=== PATIENT | male | born 1980 ===

== ENCOUNTER → 2018-06-25 21:18 | Outpatient (REF) | payer OTHER, SELFPAY ==
[2018-06-25 22:05] LABS: Add Manual Diff / Slide Review NO; Basophils Percent Auto 1.1 % (0-2); Eosinophils Percent Auto 0.7 % (2-4); Hematocrit 45.7 % (41-53); Hemoglobin 14.9 g/dL (13.5-17.5); Lymphocytes Percent Auto 22.5 % (25-40); Mean Corpuscular HGB Conc 32.6 % (30-36); Mean Corpuscular Hemoglobin 30.2 PG (26-34); Mean Corpuscular Volume 92.6 fL (80-100); Monocytes Percent Auto 7.7 % (3-14); Neutrophils Absolute Auto 3900 /uL (1500-7000); Platelet Count 244 X10^3/uL (150-400); Red Blood Cell Count 4.94 X10^6/uL (4.5-5.9); Red Cell Distribution Width 13.6 % (11.6-14.8); White Blood Cell Count 5.8 X10^3/uL (4.5-11.0)
[2018-06-25 22:46] LABS: Thyroid Stimulating Hormone 0.16 uIU/mL (0.47-4.68)
[2018-06-25 23:22] LABS: Vitamin D 25 Hydroxy (D3) 32.3 ng/mL (30.0-100.0)
[2018-06-25 23:36] LABS: Free T3, Triiodothyronine Free 2.93 pg/mL (2.77-5.27); Free T4, Direct Thyroxine 0.89 ng/dL (0.78-2.19)
[2018-06-27 13:38] LABS: EBV Virus IgM Ab < 36.00 U/mL (< 36.00); EVB Early IgG < 9.00 U/mL (< 9.00)
[2018-06-27 14:03] LABS: CMV IgG Antibody < 0.60 U/mL (< 0.60); CMV IgM Antibody < 30.00 AU/mL (< 30.00)
[2018-06-29 19:50] LABS: Homocysteine 10.5 umol/L (< 11.4)
[2018-07-01 08:48] LABS: Magnesium, RBC 4.6 mg/dL (4.0-6.4)
[2018-07-01 09:05] LABS: Triiodothyronine T3 Reverse 17 ng/dL (8-25)
== END ==
LOC: LAB 21:18
PROVIDERS: Visit Provider Acupuncturist
DX: F32.9 Major depressive disorder, single episode, unspecified (principal); F41.9 Anxiety disorder, unspecified; R53.83 Other fatigue
CPT/HCPCS: 36415; 82306; 83090; 83735; 84207; 84439; 84443; 84481; 84482; 85025; 86644; 86645; 86663; 86664; 86665

== ENCOUNTER → 2018-08-05 21:40 | Outpatient (REF) | payer OTHER, SELFPAY ==
[2018-08-05 22:22] LABS: Free T3, Triiodothyronine Free 3.63 pg/mL (2.77-5.27); Free T4, Direct Thyroxine 0.81 ng/dL (0.78-2.19)
[2018-08-05 22:35] LABS: Thyroid Stimulating Hormone 0.46 uIU/mL (0.47-4.68)
[2018-08-08 14:55] LABS: Interpretation PAST INFECTION
[2018-08-08 15:08] LABS: Thyroid Stimulating Immunoglob < 89 % baseline (< 140)
[2018-08-09 16:12] LABS: Anti Thyroglobulin Antibody < 1 IU/mL (< 2); Thyroid Peroxidase Antibodies < 1 IU/mL (< 9)
[2018-08-20 10:17] LABS: Triiodothyronine T3 Reverse 12.6
== END ==
LOC: LAB 21:40
PROVIDERS: Visit Provider Acupuncturist
DX: E05.90 Thyrotoxicosis, unspecified without thyrotoxic crisis or storm (principal)
CPT/HCPCS: 36415; 84439; 84443; 84445; 84481; 84482; 86376; 86790; 86800